=== PATIENT | male | born 1965 | race African-American/Black ===

== ENCOUNTER 2023-07-23 09:46 | Inpatient (IN) | payer OTHER ==
[2023-07-23 10:07] VITALS: BMI 20.6
[2023-07-23] MEDS ORDERED: DICYCLOMINE HCL 10 MG CAPSULE PO PRN (11:07)
[2023-07-23] MEDS ORDERED: POLYETHYLENE GLYCOL (HEALTHYLAX) 3350 17 GM PACKET PO PRN (11:07)
[2023-07-23] MEDS ORDERED: BISMUTH SUBSALICYLATE 524 MG/30 ML PO PRN (11:07)
[2023-07-23] MEDS ORDERED: guaiFENesin 600 MG TABLET.ER (FP) PO PRN (11:07)
[2023-07-23] MEDS ORDERED: NALOXONE HCL (KLOXXADO) 8 MG SPRAY NS PRN (11:07)
[2023-07-23] MEDS ORDERED: NALOXONE HCL 0.4 MG/ML VIAL IM PRN (11:07)
[2023-07-23] MEDS ORDERED: ONDANSETRON *ODT* 4 MG TABLET SL PRN (11:07)
[2023-07-23] MEDS ORDERED: ACETAMINOPHEN 325 MG TABLET (FP) PO PRN (11:07)
[2023-07-23] MEDS ORDERED: BENZONATATE 200 MG CAPSULE PO PRN (11:07)
[2023-07-23] MEDS ORDERED: MAGNESIUM HYDROX 2400MG/30ML ORAL SUSPENSION 30 ML CUP PO PRN (11:07)
[2023-07-23] MEDS ORDERED: BENZOCAINE/MENTHOL (CHLORASEPTIC ) LOZENGE MM PRN (11:07)
[2023-07-23] MEDS ORDERED: MAG HYDROX/AL HYDROX/SIMETH 30 ML UNIT-DOSE CUP PO PRN (11:07)
[2023-07-23] MEDS ORDERED: IBUPROFEN 400 MG TABLET (FP) PO PRN (11:07)
[2023-07-23] MEDS ORDERED: LOPERAMIDE HCL 2 MG CAPSULE PO PRN (11:07)
[2023-07-23] MEDS: THIAMINE HCL 100 MG TABLET (FP) PO SCH (22:47)
[2023-07-23] MEDS: MELATONIN 5 MG TABLETS PO SCH (22:47)
[2023-07-23] MEDS: hydrOXYzine PAMOATE 25 MG CAPSULE (FP) PO PRN (22:48)
[2023-07-24] MEDS: PRENATAL VITAMINS W/ FOLIC ACID TABLET (FP) PO SCH (10:58)
[2023-07-24] MEDS: NICOTINE 21 MG/24 HOURS TOPICAL PATCH TD SCH (10:58)
[2023-07-24 15:00] LABS: HEMOGLOBIN 13.4 GM/dL (11.7-16.9); MCH 32.8 pg (25.7-33.7); MCHC 33.4 g/dl (32.0-35.9); MEAN CELL VOLUME 98.3 fl (80-96); MEAN PLT VOLUME 7.5 fl (7.5-11.1); PLATELET COUNT 194 10^3/uL (134-434); RBC 4.08 M/mm3 (4.00-5.60); RDW 14.8 % (11.9-15.9); WHITE BLOOD COUNT 5.5 K/mm3 (4.0-10.0)
[2023-07-24 15:03] LABS: POTASSIUM 3.8 mmol/L (3.5-5.1)
[2023-07-24 15:13] LABS: CALCIUM 8.6 mg/dL (8.5-10.1)
[2023-07-24 15:14] LABS: ALBUMIN 3.1 g/dl (3.4-5.0); BLOOD UREA NITROGEN 18.9 mg/dL (7-18)
[2023-07-24 15:18] LABS: TOT PROT 6.2 g/dl (6.4-8.2)
[2023-07-24 15:19] LABS: BILIRUBIN,TOTAL 0.8 mg/dL (0.2-1)
[2023-07-24] MEDS: IBUPROFEN 600 MG TABLET (FP) PO PRN (19:44)
[2023-07-24] MEDS: METHOCARBAMOL 500 MG TABLET PO PRN (22:27)
[2023-07-25] MEDS: diazePAM 5 MG TABLET PO SCH (13:21)
[2023-07-25] MEDS: amLODIPine BESYLATE 5 MG TABLET (FP) PO SCH (16:59)
[2023-07-26] MEDS: diazePAM 5 MG TABLET PO SCH ×2 (05:50→17:13)
[2023-07-26] MEDS ORDERED: diazePAM 5 MG TABLET PO PRN (15:20)
[2023-07-27] MEDS: diazePAM 5 MG TABLET PO SCH (05:48)
[2023-07-27] MEDS ORDERED: diazePAM 5 MG TABLET PO ONE (06:00)
[2023-07-27 09:40] VITALS: PULSE 82; RESP 18
[2023-07-27 13:10] VITALS: BP 129/83; TEMP 97.7
[2023-07-28] MEDS ORDERED: diazePAM 5 MG TABLET PO SCH (06:00)
[2023-07-29] MEDS ORDERED: diazePAM 5 MG TABLET PO ONE (06:00)
== END 2023-07-27 12:54 | disposition home or self-care (01) | DRG 775 ==
LOC: YASAS 09:46 → UNDOADMIN 11:01 → Y6N 11:01 → UNDODISIN 07-27 12:54
PROVIDERS: ADMIT Allergy & Immunology; ATTEND Surgery
PROC: HZ2ZZZZ Detoxification Services for Substance Abuse Treatment (ICD-10-PCS; principal; 2023-07-23)
DX: F10.230 Alcohol dependence with withdrawal, uncomplicated (principal); F17.210 Nicotine dependence, cigarettes, uncomplicated; I10 Essential (primary) hypertension; Z86.69 Personal history of other diseases of the nervous system and sense organs
CPT/HCPCS: 36415; 80053; 80305; 80307; 82962; 83036; 85027; 86780; 87811; 93005; 93010

== ENCOUNTER 2023-07-27 13:16 | Inpatient (IN) | payer OTHER ==
[2023-07-27] MEDS ORDERED: METHOCARBAMOL 500 MG TABLET PO PRN (13:33)
[2023-07-27] MEDS ORDERED: POLYETHYLENE GLYCOL (HEALTHYLAX) 3350 17 GM PACKET PO PRN (13:33)
[2023-07-27] MEDS ORDERED: MAG HYDROX/AL HYDROX/SIMETH 30 ML UNIT-DOSE CUP PO PRN (13:33)
[2023-07-27] MEDS ORDERED: BENZOCAINE/MENTHOL (CHLORASEPTIC ) LOZENGE MM PRN (13:33)
[2023-07-27] MEDS ORDERED: NICOTINE POLACRILEX 4 MG GUM BUC PRN (13:33)
[2023-07-27] MEDS ORDERED: IBUPROFEN 400 MG TABLET (FP) PO PRN (13:33)
[2023-07-27] MEDS ORDERED: LOPERAMIDE HCL 2 MG CAPSULE PO PRN (13:33)
[2023-07-27] MEDS ORDERED: BENZONATATE 200 MG CAPSULE PO PRN (13:33)
[2023-07-27] MEDS ORDERED: guaiFENesin 600 MG TABLET.ER (FP) PO PRN (13:33)
[2023-07-27] MEDS ORDERED: MAGNESIUM HYDROX 2400MG/30ML ORAL SUSPENSION 30 ML CUP PO PRN (13:33)
[2023-07-27] MEDS: THIAMINE HCL 100 MG TABLET (FP) PO SCH (21:08)
[2023-07-27] MEDS: MELATONIN 5 MG TABLETS PO SCH (21:08)
[2023-07-28] MEDS: PRENATAL VITAMINS W/ FOLIC ACID TABLET (FP) PO SCH (10:06)
[2023-07-28] MEDS: amLODIPine BESYLATE 5 MG TABLET (FP) PO SCH (10:06)
[2023-07-28] MEDS: NICOTINE 21 MG/24 HOURS TOPICAL PATCH TD PRN (10:07)
[2023-07-28] MEDS: PNEUMOC 20-VAL CONJ-DIP CRM/PF 0.5 ML SYRINGE IM ONE (11:02)
[2023-07-28] MEDS: FLU VACCINE (FLULAVAL) PF 60 MCG/0.5 ML SYRINGE 2023-2024 IM ONE (11:03)
[2023-07-28] MEDS: IBUPROFEN 600 MG TABLET (FP) PO PRN (22:51)
[2023-07-30] MEDS: hydrOXYzine PAMOATE 25 MG CAPSULE (FP) PO PRN (21:02)
[2023-08-02] MEDS: SUVOREXANT 10 MG TABLET PO PRN (21:06)
[2023-08-03] MEDS: amLODIPine BESYLATE 2.5 MG TABLET (FP) PO SCH (09:49)
[2023-08-03] MEDS: NALTREXONE HCL 50 MG TABLET PO ONE (09:51)
[2023-08-04] MEDS ORDERED: NALTREXONE HCL 50 MG TABLET PO ONE (10:00)
[2023-08-04] MEDS: NALTREXONE HCL 50 MG TABLET PO SCH (10:13)
[2023-08-04] MEDS ORDERED: amLODIPine BESYLATE 10 MG TABLET (FP) PO SCH (12:00)
[2023-08-04 15:13] LABS: INR 1.09 (0.83-1.09); PROTHROMBIN TIME (PATIENT) 12.6 SEC (9.7-13.0)
[2023-08-04] MEDS: SUVOREXANT 10 MG TABLET PO PRN (21:45)
[2023-08-05] MEDS: amLODIPine BESYLATE 10 MG TABLET (FP) PO SCH (09:44)
[2023-08-06] MEDS: SUVOREXANT 10 MG TABLET PO PRN (21:12)
[2023-08-07] MEDS: NALTREXONE MICROSPHERES (VIVITROL) 380 MG DISP.SYRIN IM ONE (09:32)
[2023-08-07] MEDS: NALTREXONE HCL 50 MG TABLET PO SCH (10:15)
[2023-08-08 09:16] VITALS: RESP 18
[2023-08-09] MEDS: ACETAMINOPHEN 325 MG TABLET (FP) PO PRN (07:58)
[2023-08-09 08:09] VITALS: TEMP 97.1
[2023-08-09 09:26] VITALS: BP 137/74; PULSE 81
[2023-08-09] MEDS ORDERED: SUVOREXANT 10 MG TABLET PO PRN (22:00)
== END 2023-08-09 09:25 | disposition home or self-care (01) | DRG 772 ==
LOC: YASAS 13:16 → Y3W 13:18
PROVIDERS: ADMIT Allergy & Immunology; ATTEND Psychiatry & Neurology Pain Medicine
PROC: HZ42ZZZ Group Counseling for Substance Abuse Treatment, Cognitive-Behavioral (ICD-10-PCS; principal; 2023-07-27)
DX: F10.20 Alcohol dependence, uncomplicated (principal); F17.210 Nicotine dependence, cigarettes, uncomplicated; F32.A Depression, unspecified; G47.00 Insomnia, unspecified; I10 Essential (primary) hypertension
CPT/HCPCS: 36415; 82140; 82652; 83735; 85610; 86803; 90677; 90686

== ENCOUNTER 2023-09-30 15:03 | Inpatient (IN) | payer OTHER ==
[2023-09-30 17:21] VITALS: BMI 20.9
[2023-09-30] MEDS ORDERED: MAG HYDROX/AL HYDROX/SIMETH 30 ML UNIT-DOSE CUP PO PRN (19:14)
[2023-09-30] MEDS ORDERED: LOPERAMIDE HCL 2 MG CAPSULE PO PRN (19:14)
[2023-09-30] MEDS ORDERED: NICOTINE POLACRILEX 2 MG LOZENGE BC PRN (19:14)
[2023-09-30] MEDS ORDERED: guaiFENesin 600 MG TABLET.ER (FP) PO PRN (19:14)
[2023-09-30] MEDS ORDERED: IBUPROFEN 400 MG TABLET (FP) PO PRN (19:14)
[2023-09-30] MEDS ORDERED: POLYETHYLENE GLYCOL (HEALTHYLAX) 3350 17 GM PACKET PO PRN (19:14)
[2023-09-30] MEDS ORDERED: ACETAMINOPHEN 325 MG TABLET (FP) PO PRN (19:14)
[2023-09-30] MEDS ORDERED: BENZOCAINE/MENTHOL (CHLORASEPTIC ) LOZENGE MM PRN (19:14)
[2023-09-30] MEDS ORDERED: DOCUSATE SODIUM 100 MG CAPSULE (FP) PO PRN (19:14)
[2023-09-30] MEDS ORDERED: IBUPROFEN 600 MG TABLET (FP) PO PRN (19:14)
[2023-09-30] MEDS ORDERED: BENZONATATE 200 MG CAPSULE PO PRN (19:14)
[2023-09-30] MEDS ORDERED: P-EPHED 60MG/TRIPROLIDI 2.5MG TABLET PO PRN (19:14)
[2023-09-30] MEDS: MELATONIN 5 MG TABLETS PO SCH (22:24)
[2023-09-30] MEDS: THIAMINE 100 MG TABLET PO SCH (22:25)
[2023-09-30 23:03] LABS: EPI CELLS 18 /uL (0-25.1); HYALINE CASTS 1 /uL (0-3.1); PH,URINE 5.5 (5.0-8.0); URINE APPEARANCE CLEAR; URINE BACTERIA 261 /uL (0-1359); URINE BILIRUBIN NEGATIVE (NEGATIVE); URINE COLOR YELLOW; URINE GLUCOSE (UA) NEGATIVE (NEGATIVE); URINE KETONE NEGATIVE (NEGATIVE); URINE LEUK ESTERASE TRACE (NEGATIVE); URINE NITRITE NEGATIVE (NEGATIVE); URINE PROTEIN NEGATIVE (NEGATIVE); URINE RBC 20 /uL (0-23.9); URINE WBC 45 /uL (0-25.8)
[2023-10-01 10:30] LABS: HEMATOCRIT 40.3 % (35.4-49); HEMOGLOBIN 13.6 GM/dL (11.7-16.9); MCHC 33.8 g/dl (32.0-35.9); MEAN CELL VOLUME 97.5 fl (80-96); MEAN PLT VOLUME 7.5 fl (7.5-11.1); PLATELET COUNT 173 10^3/uL (134-434); RBC 4.13 M/mm3 (4.00-5.60); RDW 14.3 % (11.9-15.9); WHITE BLOOD COUNT 4.2 K/mm3 (4.0-10.0)
[2023-10-01] MEDS: PRENATAL VITAMINS W/ FOLIC ACID TABLET (FP) PO SCH (10:41)
[2023-10-01] MEDS: NICOTINE POLACRILEX 2 MG GUM BUC PRN (10:42)
[2023-10-01 10:48] LABS: ALBUMIN 3.2 g/dl (3.4-5.0); BLOOD UREA NITROGEN 15.2 mg/dL (7-18); CALCIUM 8.5 mg/dL (8.5-10.1)
[2023-10-01 10:51] LABS: CREATININE 0.9 mg/dL (0.55-1.3)
[2023-10-01 10:53] LABS: BILIRUBIN,TOTAL 0.6 mg/dL (0.2-1); TOT PROT 6.3 g/dl (6.4-8.2)
[2023-10-01 11:20] LABS: SYPHILIS W/ RPR CONF NON-REACTIVE (NONREACTIVE)
[2023-10-01] MEDS: hydrOXYzine PAMOATE 25 MG CAPSULE (FP) PO PRN (21:22)
[2023-10-02] MEDS: NICOTINE 21 MG/24 HOURS TOPICAL PATCH TD SCH (12:25)
[2023-10-03] MEDS: SUVOREXANT 15 MG TABLET PO PRN (21:32)
[2023-10-05] MEDS: ACAMPROSATE CALCIUM 333 MG TABLET.DR PO SCH (14:11)
[2023-10-06] MEDS: SUVOREXANT 15 MG TABLET PO PRN (21:30)
[2023-10-07] MEDS: MAGNESIUM HYDROX 2400MG/30ML ORAL SUSPENSION 30 ML CUP PO PRN (21:32)
[2023-10-08] MEDS: amLODIPine BESYLATE 10 MG TABLET (FP) PO SCH (10:00)
[2023-10-08] MEDS: SUVOREXANT 15 MG TABLET PO PRN (21:28)
[2023-10-14] MEDS: SUVOREXANT 15 MG TABLET PO PRN (21:24)
[2023-10-17] MEDS: SUVOREXANT 15 MG TABLET PO PRN (21:33)
[2023-10-20 07:02] VITALS: RESP 18
[2023-10-20] MEDS: SUVOREXANT 15 MG TABLET PO ONE (22:20)
[2023-10-21] MEDS: SUVOREXANT 15 MG TABLET PO SCH (21:34)
[2023-10-25 06:59] VITALS: TEMP 97.8
[2023-10-25 09:30] VITALS: BP 133/68; PULSE 82
== END 2023-10-25 10:20 | disposition home or self-care (01) | DRG 772 ==
LOC: YASAS 15:03 → Y3NR 20:00 → Y5N 10-01 11:50
PROVIDERS: ADMIT Allergy & Immunology; ATTEND Psychiatry & Neurology Pain Medicine
PROC: HZ42ZZZ Group Counseling for Substance Abuse Treatment, Cognitive-Behavioral (ICD-10-PCS; principal; 2023-09-30)
DX: F10.20 Alcohol dependence, uncomplicated (principal); F14.20 Cocaine dependence, uncomplicated; F12.20 Cannabis dependence, uncomplicated; F17.210 Nicotine dependence, cigarettes, uncomplicated; F33.1 Major depressive disorder, recurrent, moderate; G47.00 Insomnia, unspecified; G43.909 Migraine, unspecified, not intractable, without status migrainosus; I10 Essential (primary) hypertension
CPT/HCPCS: 36415; 80053; 80305; 81003; 85027; 86780; 86803; 87811